=== PATIENT | female | born 1985 | race Caucasian/White ===

== ENCOUNTER 2016-07-26 15:12 | Observation (INO) | payer BC ==
[2016-07-26 16:18] VITALS: RESP 18
[2016-07-26] MEDS ORDERED: Sodium Chloride 0.9% 1,000 ML IV STA (17:21)
--- NOTE | 2016-07-26 17:35 | ED PDOC ---
Arrival/HPI - General Chief Complaint: Fever Time Seen by Provider: 07/26/16 16:47 Historian: Patient - History of Present Illness Narrative History of Present Illness (Text): 07/26/16 17:31 Patient reports she is 16 weeks , complains of 4 day history of fever, nasal congestion, cough, sore throat, body aches, chills, states that she saw her PMD 2 days ago had a flu test, strep test and a urine test which were all negative. States that she has been taking Tylenol for her symptoms with no improvement. States that she called her OB doctor today and was advised to come to the emergency room to have an ultrasound to check her . Patient adds that she had a history of a miscarriage at 6 weeks, denies any abdominal pain or vaginal bleeding at this time. Otherwise: (-) rash, (-) SOB, (-) chest pain, (-) N/V/D, (-) abdominal pain, (-) flank pain, (-) urinary symptoms, (-) recent travel, (-) sick contacts. PMD [place] [facility] Past Medical History - Provider Review Nursing Documentation Reviewed: Yes - Infectious Disease Hx of Infectious Diseases: None - Reproductive Menopause: No - Psychiatric Hx Substance Use: No - Anesthesia Hx Anesthesia: No Family/Social History - Physician Review Nursing Documentation Reviewed: Yes Family/Social History: No Known Family HX Smoking Status: Unknown If Ever Smoked Hx Alcohol Use: No Hx Substance Use: No Allergies/Home Meds Allergies/Adverse Reactions: Allergies polen Allergy (Uncoded 07/26/16 16:16) CONGESTION Home Medications: Home Meds Medication Instructions Recorded Confirmed Vit Calc,Iron,Folic 1 each PO DAILY 07/26/16 07/26/16 [ Vitamins] Review of Systems - Review of Systems Constitutional: Normal, Fatigue, Weight Change (related to ), Fevers ENT: Normal. absent: Hearing Changes, Tinnitus Respiratory: Normal, Cough. absent: SOB Cardiovascular: Normal. absent: Chest Pain, Palpitations Gastrointestinal: Normal, Appetite Changes (related to ). absent: Abdominal Pain, Stool Changes Genitourinary Female: Normal. absent: Dysuria, Frequency, Hematuria Skin: Normal. absent: Rash, Pruritis, Skin Lesions Physical Exam - Physical Exam Narrative Physical Exam (Text): 07/26/16 17:35 GENERAL APPEARANCE: Patient is awake, alert, oriented x 3, in no acute distress. SKIN: Warm, dry; (-) cyanosis, (-) rash. (-) Decubitus Ulcer EYES: (-) conjunctival pallor, (-) scleral icterus, (-) conjunctival hemorrhage. ENMT: Mucous membranes dry. TMs: (-) erythema. Airway patent: (-) stridor. Pharynx: (-) erythema, (-) exudate. NECK: (-) tenderness, (-) stiffness, (-) meningismus, (-) lymphadenopathy. CHEST AND RESPIRATORY: (-) accessory muscle use. Lungs: (-) rales, (-) rhonchi, (-) wheezes, (-) rub; breath sounds equal bilaterally. HEART AND CARDIOVASCULAR: (-) irregularity; (-) murmur, (-) gallop, (-) rub. ABDOMEN AND GI: Soft; (-) tenderness, (-) guarding; (-) organomegaly; (-) mass ; (-) CVA tenderness. EXTREMITIES: (-) deformity; (-) cellulitis, (-) lymphangitis; (-) subungual hemorrhage; (-) edema. NEURO AND PSYCH: Mental status as above; (-) focal findings. Vital Signs Temp Pulse Resp BP Pulse Ox 07/26/16 20:11 97.6 F 106 H 18 112/72 100 07/26/16 16:18 98.7 F 102 H 18 93/61 L 99 Medical Decision Making ED Course and Treatment: 07/26/16 17:36 31 yo F 16 weeks , c/o 4 day h/o fever, cough, nasal congestion and sore throat. Plan: -- Labs -- IV fluids -- Urinalysis / Urine culture -- Placed in ED obs -- Pelvic US - Lab Interpretations I have reviewed the lab results: Yes (K 3.2, UA (+) trace bacteria wbc 5-10, urine cx sent) - RAD Interpretation Narrative RAD Interpretations (Text): 07/27/16 01:09 Pelvic US: FINDINGS: UTERUS: BPD: 3.5 centimeter which corresponding to gestational age of 16 weeks 6 days Heart rate: 156 bpm. age (Ultrasound estimated): 16 weeks 5 days +/- 1 week 1 day Vilma-gestational hemorrhage: None. Date of delivery (Ultrasound estimated) : 01/05/2017 Placenta seen at the posterior wall. The fetus is seen at transverse position at the time of this exam. . CERVIX: Long and closed. No cervical abnormality seen. RIGHT OVARY: Measures 2.8 x 1.4 x 1.9 cm. No mass lesion. Normal flow. LEFT OVARY: The left ovary was not visualized. FREE FLUID: None. OTHER FINDINGS: None. IMPRESSION: Single intrauterine live with ultrasound estimated gestational age of 16 weeks 5 days +/- 1 week 1 day. Estimated date of delivery by ultrasound is . No ultrasound evidence of acute pathology. Nonvisualization of the left ovary in this exam. - Medication Orders Current Medication Orders: Discontinued Medications Sodium Chloride (Sodium Chloride 0.9%) 1,000 mls @ 1,000 mls/hr IV .Q1H STA Stop: 07/26/16 18:20 Last Admin: 07/26/16 18:50 Dose: 1,000 MLS/HR eMAR Start Stop Document 07/26/16 18:50 EQ (Rec: 07/26/16 18:50 EQ [id number]) Intravenous Solution Start Date 07/26/16 Start Time 18:50 Potassium Chloride (Potassium Chloride Oral Soln) 40 meq PO STAT STA Stop: 07/26/16 19:43 Last Admin: 07/26/16 20:23 Dose: 40 MEQ ED OBSERVATION Date of observation admission: 07/26/16 Time of observation admission: 17:19 - Observation admission statement Patient is being placed in observation because:: For IV hydration, obtain pelvic US. - Goals of Observation Goals of observation are:: To monitor patient's symptoms and response to treatment. - Progress Note Progress Note: 07/26/16 19:00 Patient returned from ultrasound without any incident. On reevaluation, patient appears well in no acute distress. Denies any abdominal pain or vaginal bleeding at this time. Labs still pending at this time. 07/26/16 20:02 Lab results reviewed, K 3.2, given KCL po 40 mEq PO, UA (+) trace bacteria wbc 5 -10, urine cx sent, will Rx macrobid. Pelvic ultrasound results reviewed and discussed with the patient in great detail. On reevaluation, patient is sitting up in bed comfortably in no acute distress, IV fluids infusing. Patient has no other complaints at this time. She denies any abdominal pain or vaginal bleeding. On exam, lungs are clear, abdomen remained soft with no tenderness. Based on history, exam and diagnostic results plan will be for the patient follow-up with OB and PMD. Patient advised to stay well-hydrated and to take Tylenol only for fever. Patient states she fully agrees with and understands discharge instructions. States that she agrees with the plan and disposition. Verbalized and repeated discharge instructions and plan. I have given the patient opportunity to ask any additional questions. Follow up with primary care physician and OB in 1-2 days without fail. Return to the emergency room at any time for any new or worsening symptoms. - PA / ISSUE CLERK / Resident Statement MD/DO has reviewed & agrees with the documentation as recorded. Disposition/Present on Arrival - Present on Arrival Any Indicators Present on Arrival: No History of DVT/PE: No History of Uncontrolled Diabetes: No Urinary Catheter: No History of Decub. Ulcer: No History Surgical Site Infection Following: None - Disposition Have Diagnosis and Disposition been Completed?: Yes Diagnosis: Viral illness, Dehydration, Disposition: HOME/ ROUTINE Disposition Time: 17:19 (Patient placed in ED obs. ) Patient Plan: Discharge Patient Problems: Current Active Problems Problem Status Diagnosed Dehydration Acute Acute Viral illness Acute Condition: STABLE
[2016-07-26 18:58] LABS: ADD MANUAL DIFF? NO
--- NOTE | 2016-07-26 19:00 | US ---
PROCEDURE: OB Pelvic Ultrasound HISTORY: 16 wks , abd pain COMPARISON: None available. FINDINGS: UTERUS: BPD: 3.5 centimeter which corresponding to gestational age of 16 weeks 6 days Heart rate: 156 bpm. age (Ultrasound estimated): 16 weeks 5 days +/- 1 week 1 day Vilma-gestational hemorrhage: None. Date of delivery (Ultrasound estimated) : 01/05/2017 Placenta seen at the posterior wall. The fetus is seen at transverse position at the time of this exam. . CERVIX: Long and closed. No cervical abnormality seen. RIGHT OVARY: Measures 2.8 x 1.4 x 1.9 cm. No mass lesion. Normal flow. LEFT OVARY: The left ovary was not visualized. FREE FLUID: None. OTHER FINDINGS: None. IMPRESSION: Single intrauterine live with ultrasound estimated gestational age of 16 weeks 5 days +/- 1 week 1 day. Estimated date of delivery by ultrasound is 01/05/2017. No ultrasound evidence of acute pathology. Nonvisualization of the left ovary in this exam.
[2016-07-26 19:16] LABS: ALKALINE PHOSPHATASE 61 U/L (38-133); ALT/SGPT 95 U/L (7-56); AST/SGOT 121 U/L (15-39); BILIRUBIN,TOTAL 0.5 mg/dL (0.2-1.3); BLOOD UREA NITROGEN 3 mg/dL (7-21); CARBON DIOXIDE 28 mmol/L (21-33); CHLORIDE 98 mmol/L (98-107); GFR AFRICAN-AMERICAN > 60; GLUCOSE,RANDOM 81 mg/dL (70-110); POTASSIUM 3.2 mmol/L (3.6-5.0); SODIUM 133 mmol/L (132-148); TOTAL PROTEIN 7.4 g/dL (5.8-8.3)
[2016-07-26 19:42] LABS: BASO # 0.01 K/mm3 (0.0-2.0); BASO % 0.3 % (0.0-3.0); EOS % 0.6 % (1.5-5.0); GRAN # 1.69 (1.4-6.5); GRAN % 51.2 % (50.0-68.0); HEMATOCRIT 32.7 % (36.0-48.0); LYMPH # 1.3 (1.2-3.4); LYMPH % 38.2 % (22.0-35.0); MEAN CELL VOLUME 78.4 fL (80.0-105.0); MEAN CORPUSCULAR HEMOGLOBIN 26.6 pg (25.0-35.0); MEAN CORPUSCULAR HGB CONC 33.9 g/dl (31.0-37.0); MEAN PLATELET VOLUME 9.3 fl (7.0-11.0); MONO # 0.3 (0.1-0.6); MONO % 9.7 % (1.0-6.0); PLATELET COUNT 251 10^3/uL (120.0-450.0); RED CELL DISTRIBUTION WIDTH 14.4 % (11.5-14.5); WHITE BLOOD COUNT 3.3 10^3/ul (4.5-11.0)
[2016-07-26] MEDS ORDERED: Potassium Chloride 20 mEq/15 ml LIQ UD PO STA (19:42)
[2016-07-26 19:43] LABS: URINE BILIRUBIN NEGATIVE (NEGATIVE); URINE BLOOD SMALL (NEGATIVE); URINE GLUCOSE (UA) NEGATIVE (NEGATIVE); URINE KETONE NEGATIVE (NEGATIVE); URINE LEUKOCYTE ESTERASE NEGATIVE Leu/uL (NEGATIVE); URINE PROTEIN NEGATIVE mg/dL (<30 mg/dL); URINE UROBILINOGEN 0.2 E.U./dL (<1 E.U./dL)
[2016-07-26 19:47] LABS: URINE APPEARANCE CLEAR (CLEAR)
[2016-07-26 19:54] LABS: URINE RBC 15 - 20 /hpf (0-2)
[2016-07-26 19:55] LABS: URINE AMORPHOUS SEDIMENT TRACE; URINE BACTERIA TRACE (NEG)
[2016-07-26 20:12] VITALS: BP 112/72; PULSE 106; TEMP 97.6; O2SAT 100
== END 2016-07-26 20:20 | disposition home or self-care (01) ==
LOC: ED 15:12 → EROBSV 17:19
PROVIDERS: ADMIT Student in an Organized Health Care Education/Training Program; ATTEND Student in an Organized Health Care Education/Training Program
DX: O26.892 Other specified pregnancy related conditions, second trimester (principal); Z3A.16 16 weeks gestation of pregnancy; E86.0 Dehydration; O98.512 Other viral diseases complicating pregnancy, second trimester; B34.9 Viral infection, unspecified
CPT/HCPCS: 76815; 80053; 81001; 85025; G0378; J7040